=== PATIENT | female | born 1985 ===

== ENCOUNTER 2023-03-16 16:20 | Emergency (ER) | payer MEDICAID, OTHER ==
[~2023-03-16] VITALS: Ht 167.6 cm; Wt 73.0 kg
[2023-03-16 16:28] VITALS: BP 110/76; PULSE 84; RESP 18; TEMP 98.4; O2SAT 99
[2023-03-16] MEDS ORDERED: NAPR-1176 MT (17:15)
[2023-03-16] MEDS ORDERED: KETOROLAC 30MG/ML VIAL IM ONE (17:15)
== END 2023-03-16 17:42 | disposition home or self-care (01) ==
LOC: ER 16:20
DX: S30.0XXA Contusion of lower back and pelvis, initial encounter (principal); D64.9 Anemia, unspecified; Z88.0 Allergy status to penicillin; V49.49XA Driver injured in collision with other motor vehicles in traffic accident, initial encounter; Y93.89 Activity, other specified; Y92.89 Other specified places as the place of occurrence of the external cause; Y99.8 Other external cause status
CPT/HCPCS: 81025; 99283; J1885; Z7610